=== PATIENT | male | born 1940 | race Caucasian/White ===

== ENCOUNTER → 2016-11-20 | Outpatient (CLI) | payer OTHER ==
[~2016-11-20] VITALS: Ht 180.3 cm; Wt 72.6 kg
[~2016-11-20] MED LIST: ADVAIR HFA120 INHALA IH; ASPIR 8181 M1 PO; ATROVENT H200 INHALA IH; BRAND FLOMAX0.4 MG PO; COLACE100 MG PO; DAILY VALUE1 EACH PO; DAILY VITAMIN1 EAC4 PO; DOCUSATE SODIU100 MG PO; LEVAQUIN500 MG PO; LEVOTHROID125 MCG PO; LEVOTHYROXINE100 MCG PO; LIPITOR10 MG PO; LO-DOSE ASPIRIN81 M2 PO; LOPRESSOR25 MG PO; Levaquin PO; METOPROLOL TART25 MG PO; NITROSTAT0.4 MG SL; PREDNISONE10 MG PO; PREDNISONE20 MG PO; PROSCAR5 MG PO; PROVENTIL HFA6.7 GM IH; TAMSULOSIN HCL0.4 MG PO; THEO-24200 MG PO; THEO-DUR,THEOC300 MG PO; THEOCHRON200 MG PO; VITAMIN D1000 INTUN PO; VITAMIN D1000 UNIT PO; ZITHROMAX Z-PA250 MG PO; predniSONE PO
[2016-11-20 10:33] LABS: HEMATOCRIT 44.8 % (38.0-50.0); MCH 31.6 PG (29.0-34.0); MCHC 34.8 G/DL (30.0-36.0); MCV 90.9 FL (86-99); MEAN PLAT.VOLUME 9.5 uM^3 (9.0-12.4); PLATELET COUNT 198 K/uL (156-360); RBC DIS.WIDTH-CV 13.3 % (11.8-14.6); RBC DIS.WIDTH-SD 44.9 % (39-53); RED BLOOD COUNT 4.93 M/uL (4.00-5.50); WHITE BLOOD COUNT 6.8 K/uL (4.1-10.2)
[2016-11-20 10:47] LABS: PROTHROMBIN TIME 11.5 SEC (10.2-12.9)
[2016-11-20 10:50] LABS: PTT 32.7 SEC (25-37)
== END | disposition home or self-care (01) ==
LOC: OPR 09:38 → EDSTATUS 10:00
PROVIDERS: Radiology Diagnostic Radiology
PROC: 0BBF3ZX Excision of Right Lower Lung Lobe, Percutaneous Approach, Diagnostic (ICD-10-PCS; principal; 2016-11-20)
DX: C34.31 Malignant neoplasm of lower lobe, right bronchus or lung (principal); J44.9 Chronic obstructive pulmonary disease, unspecified
CPT/HCPCS: 71010; 77012; 85027; 85610; 85730; 88305; 88341 TC; 88342 TC; J3010

== ENCOUNTER → 2016-12-19 | Outpatient (CLI) | payer OTHER | END | disposition home or self-care (01) | LOC: NUC 10:35 | DX: J98.4 Other disorders of lung (principal); C34.90 Malignant neoplasm of unspecified part of unspecified bronchus or lung | CPT/HCPCS: 71020; 78598; A9540; A9567 ==

== ENCOUNTER 2017-03-16 14:03 | Day surgery (SDC) | payer OTHER ==
[~2017-03-16] VITALS: Ht 180.3 cm; Wt 72.5 kg
[~2017-03-16 14:03] MED LIST changes: +AMOXICILLIN875 MG PO
[2017-03-16 14:47] VITALS: BP 136/79
[2017-03-16 15:15] LABS: ALBUMIN 4.7 G/DL (3.2-4.8); CHLORIDE 98 MEQ/L (99-109); POTASSIUM 3.6 MEQ/L (3.7-5.4); SODIUM 134 MEQ/L (136-147); TOTAL BILIRUBIN 0.9 MG/DL (0.0-1.0)
[2017-03-16 15:16] LABS: BASOPHIL (%) 0.6 % (0-1); BASOPHIL COUNT 0.1 K/uL (0-0.1); EOSINOPHIL (%) 0.8 % (0-5); EOSINOPHIL COUNT 0.1 K/uL (0-0.3); HEMATOCRIT 48.7 % (38.0-50.0); HEMOGLOBIN 16.1 G/DL (12.5-16.6); IMMATURE GRANULOCYTE (%) 0.2 % (0.0-0.7); LYMPHOCYTE (%) 14.1 % (15-42); LYMPHOCYTE COUNT 1.2 K/uL (1.0-2.8); MCH 30.3 PG (29.0-34.0); MCHC 33.1 G/DL (30.0-36.0); MCV 91.5 FL (86-99); MONOCYTE (%) 6.7 % (3-12); MONOCYTE COUNT 0.6 K/uL (0-0.8); NEUTROPHIL (%) 77.6 % (45-76); NEUTROPHIL COUNT 6.4 K/uL (1.8-6.4); PLATELET COUNT 270 K/uL (156-360); RBC DIS.WIDTH-CV 13.1 % (11.8-14.6); RBC DIS.WIDTH-SD 43.8 % (39-53); RED BLOOD COUNT 5.32 M/uL (4.00-5.50); WHITE BLOOD COUNT 8.3 K/uL (4.1-10.2)
[2017-03-16 15:21] LABS: ALKALINE PHOSPHATASE 78 IU/L (3-129); ALT (GPT) 17 IU/L (3-49); AST (GOT) 21 IU/L (2-34); CREATININE 0.8 MG/DL (0.6-1.3); GFR ESTIMATE (CALCULATED) > 59 mL/min/ (58.99-99999); GLUCOSE 77 mg/dL (70-99); TOTAL PROTEIN 7.5 G/DL (6.4-8.3); UREA NITROGEN (BUN) 11 mg/dL (9-23)
[2017-03-16] MEDS ORDERED: HYDROCODON-ACE1 EAC7 PO (19:42)
[2017-03-16] MEDS ORDERED: COLACE100 MG PO (19:42)
[2017-03-16 20:20] VITALS: BP 136/74
[2017-03-16 21:20] VITALS: BP 127/73
== END 2017-03-16 21:40 | disposition home or self-care (01) ==
LOC: SDC 14:03
PROVIDERS: Thoracic Surgery (Cardiothoracic Vascular Surgery)
PROC: 07B74ZX Excision of Thorax Lymphatic, Percutaneous Endoscopic Approach, Diagnostic (ICD-10-PCS; principal; 2017-03-16)
DX: C34.31 Malignant neoplasm of lower lobe, right bronchus or lung (principal); J44.9 Chronic obstructive pulmonary disease, unspecified; Z99.81 Dependence on supplemental oxygen; I10 Essential (primary) hypertension; E03.9 Hypothyroidism, unspecified; Z87.891 Personal history of nicotine dependence; Z86.73 Personal history of transient ischemic attack (TIA), and cerebral infarction without residual deficits; Z79.82 Long term (current) use of aspirin
CPT/HCPCS: 80053; 85025; 85610; 86850; 86900; 86901; 88305; J0330; J0690; J1100; J1170; J2405; J2710; J2765; J3010